=== PATIENT | female | born 1965 | race Caucasian/White ===

== ENCOUNTER 2018-11-07 05:57 | Day surgery (SDC) | payer OTHER ==
[~2018-11-07] VITALS: Ht 157.5 cm; Wt 59.4 kg
[2018-11-07 07:45] VITALS: BP 133/74; PULSE 67; RESP 18; Ht 157.5 cm; Wt 59.4 kg
[2018-11-07] MEDS ORDERED: VENTOLIN PRN (07:55)
[2018-11-07] MEDS ORDERED: MIDAZOLAM 1 MG/ML 2 ML INJ ONE ×2 (09:34)
[2018-11-07] MEDS ORDERED: FENTAnyl 50 MCG/ML VIAL ONE (09:34)
[2018-11-07 09:36] VITALS: BP 119/67; PULSE 56; RESP 16
[2018-11-07] MEDS ORDERED: ONDANSETRON 4 MG TAB PO STA (09:53)
== END 2018-11-07 14:18 | disposition home or self-care (01) ==
LOC: GIL 05:57
PROVIDERS: ATTEND Internal Medicine Gastroenterology
DX: Z12.11 Encounter for screening for malignant neoplasm of colon (principal); K64.8 Other hemorrhoids; K57.30 Diverticulosis of large intestine without perforation or abscess without bleeding; K29.50 Unspecified chronic gastritis without bleeding
CPT/HCPCS: 43239; 45378; 88305; 88312; J2250; J3010; Z7610